=== PATIENT | female | born 1995 | race Caucasian/White ===

== ENCOUNTER 2018-07-05 00:59 | Outpatient (CLI) | payer MEDICAID, SELFPAY ==
--- NOTE | 2018-07-05 14:00 | DI.US_ITS ---
SYMPTOM/DIAGNOSIS: LT BREAST LUMP, N63.01 LEFT BREAST ULTRASOUND: Sonographic evaluation of the outer left breast was performed. There are several well circumscribed, radially oriented, hypoechoic, avascular masses present. The largest measures 2.0 by 1 cm. in diameter and corresponds to the palpable abnormality. The findings are most suggestive of benign lesion such as fibroadenomas. No suspicious cystic or solid masses are seen. IMPRESSION: No evidence for malignancy. Multiple similar sonographically benign appearing masses most suggestive of multiple fibroadenomas.
== END 2018-07-05 01:19 ==
PROVIDERS: PCP Family Medicine; Visit Provider Family Medicine
DX: N63.20 Unspecified lump in the left breast, unspecified quadrant (principal); D24.2 Benign neoplasm of left breast
CPT/HCPCS: 76642

== ENCOUNTER 2018-07-12 16:39 | Outpatient (REF) | payer MEDICAID, SELFPAY ==
--- NOTE | 2018-07-12 15:30 | PAPFT_PTH ---
PATIENT: Lore Mcmahan LOC: [facility] U#:[id number] AGE/SX: 22/F ROOM: RE07/12/[address]: Jacinta Graf : 1995 BED: DIS: 07/12/2018 SPEC #: [id number] RECD: 07/13/18 12:48 STATUS: JOLENE RE[place] #: [id number] ROSINA: 07/12/18 15:[address]: Jacinta Graf DEPT: [facility] Cytology RECD BY: Gema Valdez Tissues: 1 - CX/ENDOCX FOR PAP SMEARS Procedures: PAP THIN PREP/[facility] Screening HPV DNA PROBE Comments: [id number]
== END 2018-07-12 16:59 ==
LOC: NCHCN 16:39
PROVIDERS: PCP Family Medicine; Visit Provider Family Medicine
DX: Z12.4 Encounter for screening for malignant neoplasm of cervix (principal); Z00.00 Encounter for general adult medical examination without abnormal findings
CPT/HCPCS: 88142; 87624

== ENCOUNTER 2020-02-20 13:58 | Outpatient (REF) | payer MEDICAID, SELFPAY ==
[2020-02-22 21:32] LABS: SARS-CoV-2 RNA Undetected (Undetected); SARS-CoV-2 Specimen Source Nasopharynx
== END 2020-02-20 14:18 ==
LOC: NCHCN 13:58
PROVIDERS: PCP Family Medicine; Visit Provider Nurse Practitioner Family
DX: Z20.828 Contact with and (suspected) exposure to other viral communicable diseases (principal)
CPT/HCPCS: U0003

== ENCOUNTER 2020-07-13 13:57 | Outpatient (REF) | payer MEDICAID, SELFPAY ==
[2020-07-13 14:21] LABS: Anion Gap 8.8 mmol/L (3-11); BUN 10 mg/dL (7-18); CO2 26.2 mmol/L (21.0-32.0); CREATININE 0.76 mg/dL (0.55-1.02); Calcium 9.2 mg/dL (8.5-10.1); Chloride 103 mmol/L (98-107); Glucose 85 mg/dL (74-106); Potassium 3.9 mmol/L (3.5-5.1); Sodium 138 mmol/L (136-145); TSH (W/Ref FT4) 2.42 uIU/mL (0.36-3.74)
[2020-07-13 22:53] LABS: FSH 2.7 mIU/mL (See Note); LH 4.2 mIU/mL (See Note)
== END 2020-07-13 14:17 ==
LOC: NCHCN 13:57
PROVIDERS: PCP Family Medicine; Visit Provider Family Medicine
DX: L70.9 Acne, unspecified (principal); Z51.81 Encounter for therapeutic drug level monitoring
CPT/HCPCS: 80048; 83001; 83002; 84443

== ENCOUNTER 2021-06-10 14:58 | Outpatient (REF) | payer MEDICAID, SELFPAY | END 2021-06-10 14:59 | disposition home or self-care (01) | LOC: LBN 14:58 | PROVIDERS: PCP Family Medicine; Visit Provider Physician Assistant Medical | DX: L02.411 Cutaneous abscess of right axilla (principal) | CPT/HCPCS: 87077; 87070; 87186; 87205 ==

== ENCOUNTER 2021-07-18 18:23 | Outpatient (REF) | payer MEDICAID, SELFPAY ==
[2021-07-18 14:28] LABS: HCT 40.6 % (36.0-46.0); HGB 12.4 g/dL (11.2-15.7); MCH 27.4 pg (27.0-33.0); MCHC 30.5 % (32.0-36.0); MCV 89.8 fL (80-95); MPV 11.1 fL (8.0-11.0); Platelet Count 244 10^3/uL (130-400); RBC 4.52 10^6/uL (3.93-5.22); RDW 12.9 % (11.7-14.6); RDW-SD 42.8 fL; WBC 4.92 10^3/uL (4.4-10.8)
[2021-07-18 14:51] LABS: Anion Gap 6.4 mmol/L (3-11); BUN 13 mg/dL (7-18); CO2 28.6 mmol/L (21.0-32.0); CREATININE 0.7 mg/dL (0.55-1.02); Calcium 9.1 mg/dL (8.5-10.1); Chloride 104 mmol/L (98-107); Glucose 88 mg/dL (74-106); Potassium 4.5 mmol/L (3.5-5.1); Sodium 139 mmol/L (136-145); TSH (W/Ref FT4) 3.23 uIU/mL (0.36-3.74)
[2021-07-18 15:10] LABS: Hemoglobin A1C 4.8 % (<5.7)
[2021-07-19 10:39] LABS: Hepatitis C Ab w Rflx HCV PCR Negative (Negative)
[2021-07-19 10:55] LABS: HIV-1/2 Ag & Ab Screen Negative (Negative)
== END 2021-07-18 18:24 | disposition home or self-care (01) ==
LOC: NCHCN 18:23
PROVIDERS: PCP Family Medicine; Visit Provider Family Medicine
DX: L08.9 Local infection of the skin and subcutaneous tissue, unspecified (principal); L02.411 Cutaneous abscess of right axilla; R53.83 Other fatigue; R63.5 Abnormal weight gain; Z11.4 Encounter for screening for human immunodeficiency virus [HIV]; Z11.59 Encounter for screening for other viral diseases; Z13.1 Encounter for screening for diabetes mellitus
CPT/HCPCS: 80048; 85027; 86803; 87077; 87389; 83036; 84443; 87070; 87186; 87205

== ENCOUNTER 2021-09-23 13:57 | Outpatient (REF) | payer MEDICAID, SELFPAY ==
--- NOTE | 2021-09-23 11:45 | PAPFT_PTH ---
PATIENT: Lroe Mcmahan LOC: [facility] #:[id number] AGE/SX: 25/F ROOM: RE09/23/[address]: Jacinta Graf : 1995 BED: DIS: 09/23/2021 SPEC #: [id number] RECD: 09/24/21 12:49 STATUS: JOLENE REHel[place] #: [id number] ROSINA: 09/23/21 11:[address]: Jacinta Graf DEPT: [facility] Cytology RECD BY: Gema Valdez Tissues: 1 - CX/ENDOCX FOR PAP SMEARS Procedures: PAP THIN PREP/[facility] Screening Comments: [id number] (CHLAMYDIA/GC) (UNSATISFACTORY FOR EVALUATION)
[2021-09-25 15:01] LABS: Chlamydia Result Negative (Negative); GC Result Negative (Negative)
== END 2021-09-23 13:58 | disposition home or self-care (01) ==
LOC: NCHCN 13:57
PROVIDERS: PCP Family Medicine; Visit Provider Family Medicine
DX: R87.615 Unsatisfactory cytologic smear of cervix (principal); Z12.4 Encounter for screening for malignant neoplasm of cervix; Z11.3 Encounter for screening for infections with a predominantly sexual mode of transmission
CPT/HCPCS: 87491; 87591; 88142

== ENCOUNTER 2022-06-22 14:15 | Outpatient (REF) | payer MEDICAID, SELFPAY | END 2022-06-22 14:16 | disposition home or self-care (01) | LOC: LBN 14:15 | PROVIDERS: PCP Family Medicine; Visit Provider Nurse Practitioner Family | DX: J02.9 Acute pharyngitis, unspecified (principal) | CPT/HCPCS: 87070 ==